=== PATIENT | female | born 1945 | race Caucasian/White ===

== ENCOUNTER 2017-07-13 08:44 | Emergency (ER) | payer MEDICARE, BC ==
--- NOTE | 2017-07-13 08:45 | EDM.PDOC ---
ED HPI GENERAL MEDICAL PROBLEM - General Chief Complaint: Laceration Stated Complaint: "CUT END OF FINGER OFF" Time Seen by Provider: 07/13/17 08:45 Source of Information: Reports: Patient, RN, RN Notes Reviewed History Limitations: Reports: No Limitations - History of Present Illness INITIAL COMMENTS - FREE TEXT/NARRATIVE: Arrives from home/farm by POV with c/o accidental amputation of distal left thumb on a fuel pump elvis belt just prior to arrival to ER. Denies any other injury. 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 Last tetanus vaccine unknown but likely greater than 10 yrs per pt. Onset: Sudden Onset Date: 07/13/17 Duration: Hour(s): (1) Location: Reports: Upper Extremity, Left Quality: Reports: Ache Severity: Moderate Improves with: Reports: None Worsens with: Reports: None Associated Symptoms: Reports: No Other Symptoms - Related Data Allergies Allergy/AdvReac Type Severity Reaction Status Date / Time No Known Allergies Allergy Verified 12/06/13 08:55 Home Meds: Home Meds Naproxen Sodium [Aleve] 220 mg PO BID 12/06/13 [History] Acetaminophen [Tylenol Extra Strength] 500 mg PO Q6H PRN 12/09/13 [History] Past Medical History Musculoskeletal History: Reports: Fracture (left wrist), Osteoarthritis - Past Surgical History Musculoskeletal Surgical History: Reports: ORIF (left wrist) Social & Family History - Family History Family Medical History: Noncontributory - Alcohol Use Days Per Week of Alcohol Use: 0 - Recreational Drug Use Recreational Drug Use: No - Living Situation & Occupation Living situation: Reports: with Family Occupation: Other (active famer/rancher) Review of Systems - Review of Systems Review Of Systems: ROS reveals no pertinent complaints other than HPI. ED EXAM, GENERAL - Physical Exam Exam: See Below Exam Limited By: No Limitations General Appearance: Alert, WD/WN, No Apparent Distress, Anxious Nose: Normal Inspection Throat/Mouth: Normal Inspection, Normal Voice, No Airway Compromise Head: Atraumatic, Normocephalic Neck: Normal Inspection Respiratory/Chest: No Respiratory Distress Cardiovascular: Regular Rate, Rhythm Extremities: Other (traumatic amputation left distal thumb w/exposed bone) Neurological: Alert, Oriented, CN II-XII Intact, Normal Cognition, Normal Gait, No Motor/Sensory Deficits Psychiatric: Normal Affect, Normal Mood, Anxious Skin Exam: Warm, Dry, Normal Color Course - Orders/Labs/Meds Orders: Active Orders 24 hr Category Date Time Status Peripheral IV Care [RC] . DIRECTED Care 07/13/17 08:49 Active Vaccines to be Administered [RC] PER UNIT ROUTINE Care 07/13/17 08:48 Active Ampicillin/Sulbactam Na [Unasyn] 3 gm Med 07/13/17 09:25 Ordered Sodium Chloride 0.9% [Normal Saline] 100 ml IV ONETIME Sodium Chloride 0.9% [Saline Flush] Med 07/13/17 08:49 Active 10 ml FLUSH ASDIRECTED PRN Vancomycin 1 gm Med 07/13/17 09:30 Active Sodium Chloride 0.9% [Normal Saline] 250 ml IV ONETIME Peripheral IV Insertion Adult [OM.PC] Stat Oth 07/13/17 08:49 Ordered Medication Orders Ampicillin Sodium/Sulbactam (Sodium 3 gm/ Sodium Chloride) 100 mls @ 100 mls/ hr IV ONETIME ONE Stop: 07/13/17 10:24 Last Admin: 07/13/17 10:06 Dose: 100 mls/hr Vancomycin HCl 1 gm/ Sodium (Chloride) 250 mls @ 167 mls/hr IV ONETIME ONE Stop: 07/13/17 10:59 Last Admin: 07/13/17 10:00 Dose: 167 mls/hr Sodium Chloride (Saline Flush) 10 ml FLUSH ASDIRECTED PRN PRN Reason: Keep Vein Open Last Admin: 07/13/17 09:00 Dose: 10 ml Meds: Medications Generic Name Dose Route Start Last Admin Trade Name Freq PRN Reason Stop Dose Admin Ampicillin Sodium/Sulbactam 100 mls @ 100 mls/hr 07/13/17 09:25 07/13/17 10: 06 Sodium 3 gm/ Sodium Chloride IV 07/13/17 10:24 100 mls/hr ONETIME ONE Administration Vancomycin HCl 1 gm/ Sodium 250 mls @ 167 mls/hr 07/13/17 09:30 07/13/17 10: 00 Chloride IV 07/13/17 10:59 167 mls/hr ONETIME ONE Administration Sodium Chloride 10 ml 07/13/17 08:49 07/13/17 09:00 Saline Flush FLUSH 10 ml ASDIRECTED PRN Administration Keep Vein Open Discontinued Medications Generic Name Dose Route Start Last Admin Trade Name Freq PRN Reason Stop Dose Admin Cefazolin Sodium 1 gm 07/13/17 08:49 07/13/17 09:20 Ancef IVPUSH 07/13/17 08:50 1 gm ONETIME ONE Administration Diphtheria/Tetanus/Acell Pertussis 0.5 ml 07/13/17 08:48 07/13/17 09:23 Adacel IM 07/13/17 08:49 0.5 ml .ONCE ONE Administration Hydromorphone HCl 1 mg 07/13/17 09:25 07/13/17 09:50 Dilaudid IVPUSH 07/13/17 09:26 0.75 mg ONETIME ONE Administration Lidocaine HCl 30 ml 07/13/17 08:49 07/13/17 09:40 Xylocaine-Mpf 1% INJECT 07/13/17 08:50 30 ml ONETIME ONE Administration Ondansetron HCl 4 mg 07/13/17 09:25 07/13/17 09:49 Zofran IV 07/13/17 09:26 4 mg ONETIME ONE Administration - Radiology Interpretation Free Text/Narrative:: Xray left thumb: distal amputation, non-displaced distal phalynx fracture per Rad. report. 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 Traumatic amputation of thumb (complete) (partial) Qualifiers: Encounter type: initial encounter Laterality: left Qualified Code(s): S68.012A - Complete traumatic metacarpophalangeal amputation of left thumb, initial encounter Open fracture of phalanx of left thumb Qualifiers: Encounter type: initial encounter Phalanx: distal Fracture alignment: nondisplaced Qualified Code(s): S62.525B - Nondisplaced fracture of distal phalanx of left thumb, initial encounter for open fracture - Discharge Information Forms: ED Department Discharge, Interfacility Transfer EMTALA - My Orders Last 24 Hours: My Active Orders 07/13/17 08:48 Vaccines to be Administered [RC] PER UNIT ROUTINE 07/13/17 08:49 Peripheral IV Care [RC] . DIRECTED Sodium Chloride 0.9% [Saline Flush] 10 ml FLUSH ASDIRECTED PRN Peripheral IV Insertion Adult [OM.PC] Stat 07/13/17 09:25 Ampicillin/Sulbactam Na [Unasyn] 3 gm Sodium Chloride 0.9% [Normal Saline] 100 ml IV ONETIME 07/13/17 09:30 Vancomycin 1 gm Sodium Chloride 0.9% [Normal Saline] 250 ml IV ONETIME - Assessment/Plan Last 24 Hours: My Active Orders 07/13/17 08:48 Vaccines to be Administered [RC] PER UNIT ROUTINE 07/13/17 08:49 Peripheral IV Care [RC] . DIRECTED Sodium Chloride 0.9% [Saline Flush] 10 ml FLUSH ASDIRECTED PRN Peripheral IV Insertion Adult [OM.PC] Stat 07/13/17 09:25 Ampicillin/Sulbactam Na [Unasyn] 3 gm Sodium Chloride 0.9% [Normal Saline] 100 ml IV ONETIME 07/13/17 09:30 Vancomycin 1 gm Sodium Chloride 0.9% [Normal Saline] 250 ml IV ONETIME
[2017-07-13] MEDS ORDERED: Diphtheria,Pertussis(Acell),Tetanus Vaccine 0.5 ML SDV IM ONE (08:48)
[2017-07-13] MEDS ORDERED: Sodium Chloride 0.9% 10 ML Syringe FLUSH PRN (08:49)
[2017-07-13] MEDS ORDERED: Lidocaine 1% 30 ML SDV INJECT ONE (08:49)
[2017-07-13] MEDS ORDERED: ceFAZolin 1 GM Vial IVPUSH ONE (08:49)
--- NOTE | 2017-07-13 09:11 | CR ---
Clinical history: 72-year-old female "traumatic amputation" distal end of the left thumb. Interpretation: Abnormal. Complete absence soft tissues distally with underlying avulsion of the terminal tuft distal phalanx l eft thumb. Incidentally noted nondisplaced fracture mid diaphysis of this distal phalanx and chronic severe arth ritic changes of the adjacent DIP joint left thumb. No foreign bodies and no fracture or dislocation of the arthritic adjacent index/middle fingers left hand. Orthopedic hardware distal end of the left radius and ulna.
[2017-07-13] MEDS ORDERED: HYDROmorphone 1 MG/ML Syringe IVPUSH ONE (09:25)
[2017-07-13] MEDS ORDERED: Ondansetron 4 MG/2 ML SDV IV ONE (09:25)
[2017-07-13] MEDS ORDERED: Ampicillin/Sulbactam Na 3 GM in Sodium Chloride 0.9% 100 ML IV ONE (09:25)
== END 2017-07-13 10:25 ==
LOC: DL.ED 08:44
DX: S68.012A Complete traumatic metacarpophalangeal amputation of left thumb, initial encounter (principal); W22.8XXA Striking against or struck by other objects, initial encounter; Y92.73 Farm field as the place of occurrence of the external cause; Y99.0 Civilian activity done for income or pay
CPT/HCPCS: 73140; 90471; 90715; 96365; 96368; 96375; 99284; J0295; J0690; J1170; J2405; J3370; J7050; 99285

== ENCOUNTER 2018-09-18 15:58 | Emergency (ER) | payer MEDICARE, BC ==
[2018-09-18] MEDS ORDERED: Ketorolac 30 MG/ML SDV IM ONE (17:02)
--- NOTE | 2018-09-18 17:10 | EDM.PDOC ---
ED HPI GENERAL MEDICAL PROBLEM - General Chief Complaint: Neck Problem Stated Complaint: PAIN IN NECK TO SHOULDER INTO ARM Time Seen by Provider: 09/18/18 16:48 Source of Information: Reports: Patient, RN, RN Notes Reviewed History Limitations: Reports: No Limitations - History of Present Illness INITIAL COMMENTS - FREE TEXT/NARRATIVE: Patient presents to ER with complaint of right neck/shoulder/arm pain. States this began a few days ago but has progressively gotten worse. 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 She has had no numbness or tingling--just pain. Onset: Gradual Duration: Getting Worse Location: Reports: Neck, Upper Extremity, Right Quality: Reports: Ache Severity: Moderate Improves with: Reports: None Worsens with: Reports: None Associated Symptoms: Reports: No Other Symptoms Right Neck Pain Score (Numeric/FACES): 9 - Related Data Allergies Allergy/AdvReac Type Severity Reaction Status Date / Time No Known Allergies Allergy Verified 09/18/18 16:29 Home Meds: Home Meds Naproxen Sodium [Aleve] 220 mg PO BID 12/06/13 [History] Acetaminophen [Tylenol Extra Strength] 500 mg PO Q6H PRN 12/09/13 [History] Past Medical History - Past Health History Medical/Surgical History: Denies Medical/Surgical History HEENT History: Reports: None Cardiovascular History: Reports: None Respiratory History: Reports: None Gastrointestinal History: Reports: None Genitourinary History: Reports: None 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 Musculoskeletal History: Reports: Arthritis, Fracture, Osteoarthritis Neurological History: Reports: None Psychiatric History: Reports: None Endocrine/Metabolic History: Reports: None Hematologic History: Reports: None Immunologic History: Reports: None Oncologic (Cancer) History: Reports: None Dermatologic History: Reports: None - Past Surgical History Head Surgeries/Procedures: Reports: None Musculoskeletal Surgical History: Reports: ORIF Social & Family History - Family History Family Medical History: Noncontributory - Tobacco Use Smoking Status *Q: Never Smoker - Recreational Drug Use Recreational Drug Use: No - Living Situation & Occupation Living situation: Reports: with Family Occupation: Other (active famer/rancher) ED ROS GENERAL - Review of Systems Review Of Systems: ROS reveals no pertinent complaints other than HPI. ED EXAM, UPPER BACK/NECK PAIN - Physical Exam Exam: See Below Exam Limited By: No Limitations General Appearance: Anxious, Other (in pain) Eye Exam: Bilateral Eye: EOMI, Normal Inspection, PERRL Ears Exam: Normal External Exam, Normal Canal, Hearing Grossly Normal, Normal TMs Nose Exam: Normal Inspection, Normal Mucousa, No Blood Throat/Mouth Exam: Normal Inspection, Normal Lips, Normal Teeth, Normal Gums, Normal Oropharynx, Normal Voice, No Airway Compromise Head Exam: Atraumatic, Normocephalic Neck Exam: Tender Lateral (right) Cardiovascular/Respiratory: Regular Rate, Rhythm, No M/R/G, Normal Peripheral Pulses, No JVD, Normal Breath Sounds, No Respiratory Distress GI/Abdominal: Normal Bowel Sounds, Soft, Non-Tender, No Organomegaly, No Distention, No Abnormal Bruit, No Mass (Female) Exam: Deferred Rectal (Female) Exam: Deferred Back Exam: Normal Inspection, Full Range of Motion, NT Extremities: Other (right neck/shoulder pain) Neurologic: operations examiner II-XII nml As Tested, No Motor/Sensory Deficits, Alert, Normal Mood/Affect, Oriented x 3 Psychiatric: Anxious Skin Exam: Normal Color, Warm/Dry Lymphatic: No Adenopathy Course - Vital Signs Last Recorded V/S: Last Vital Signs Temp 98.5 F 09/18/18 16:04 Pulse 73 09/18/18 16:11 Resp 18 09/18/18 16:11 BP 118/59 L 09/18/18 16:11 Pulse Ox 98 09/18/18 16:11 - Orders/Labs/Meds Orders: Active Orders 24 hr Category Date Time Status Orphenadrine [Norflex] Med 09/18/18 17:15 Active 60 mg IM Q12H Medication Orders Orphenadrine Citrate (Norflex) 60 mg IM Q12H JOHN Last Admin: 09/18/18 17:20 Dose: 60 mg Meds: Medications Generic Name Dose Route Start Last Admin Trade Name Freq PRN Reason Stop Dose Admin Orphenadrine Citrate 60 mg 09/18/18 17:15 09/18/18 17:20 Norflex IM 60 mg Q12H JOHN Administration Discontinued Medications Generic Name Dose Route Start Last Admin Trade Name Freq PRN Reason Stop Dose Admin Ketorolac Tromethamine 30 mg 09/18/18 17:02 09/18/18 17:22 Toradol IM 09/18/18 17:03 30 mg ONETIME ONE Administration - Radiology Interpretation Free Text/Narrative:: X-ray C spine: No acute process. See rad report. X-ray right shoulder; No acute osseous process. See rad report. Departure - Departure Time of Disposition: 18:01 Disposition: Home, Self-Care 01 Condition: Fair Clinical Impression: Cervical radiculopathy - Discharge Information *PRESCRIPTION DRUG MONITORING PROGRAM REVIEWED*: No *COPY OF PRESCRIPTION DRUG MONITORING REPORT IN PATIENT AMBROSIO: No Instructions: Cervical Radiculopathy, [id number] Forms: ED Department Discharge Additional Instructions: RX: Diclofenac, Flexeril May heat and ice alternating as tolerated Follow up with your appointment on for referral for a MRI of cervical spine and right shoulder. Rest - My Orders Last 24 Hours: My Active Orders 09/18/18 17:15 Orphenadrine [Norflex] 60 mg IM Q12H - Assessment/Plan Last 24 Hours: My Active Orders 09/18/18 17:15 Orphenadrine [Norflex] 60 mg IM Q12H
--- NOTE | 2018-09-18 17:27 | CR ---
Clinical history: 73-year-old female complaining of right shoulder/arm pain Interpretation: AP lateral cervical spine exam abnormal. 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 relative intervertebral disc space narrowing with endplate sclerosis and hypertrophic marginal/uncinate spur formation C4-5, C5-6 and C6-7 levels. Bony demineralization consistent with age and gender. No pathologic skeletal lesion. Lung apices clear. No sign of prevertebral soft tissue swelling, cervical fracture or spondylolisthesis. (Short cervical ribs bilaterally at the C7 level) CONCLUSION: Multilevel disc disease and hypertrophic arthritic changes cervical spine.
--- NOTE | 2018-09-18 17:28 | CR ---
Clinical history: 73-year-old female right shoulder pain (" multilevel disc disease and arthritis of the mid/lower cervical spine")
== END 2018-09-18 18:07 | disposition home or self-care (01) ==
LOC: DL.ED 15:58
DX: M54.12 Radiculopathy, cervical region (principal); M19.90 Unspecified osteoarthritis, unspecified site
CPT/HCPCS: 72040; 73030; 96372; 99283; J1885; J2360

== ENCOUNTER 2023-05-25 09:16 | Emergency (ER) | payer MEDICARE, BC ==
[2023-05-25] MEDS ORDERED: Lidocaine 2% Viscous Solution 15 ML UD PO ONE (09:30)
[2023-05-25] MEDS ORDERED: Ibuprofen Susp 100 MG/5 ML 5 ML UD Cup PO ONE (09:32)
== END 2023-05-25 10:18 | disposition home or self-care (01) ==
LOC: DL.ED 09:16
DX: J02.9 Acute pharyngitis, unspecified (principal); Z86.16 Personal history of COVID-19
CPT/HCPCS: 99282; 99283; A9270-GY